=== PATIENT | male | born 1980 | race Caucasian/White ===

== ENCOUNTER 2016-06-15 10:16 | Day surgery (SDC) | payer BC ==
[~2016-06-15 10:16] MED LIST: Buffered Lidocaine 1% SYR 3ML* 3 ML/SYR SYRINGE INTRADERM ONE; Dexamethasone IV* 4 MG/ML 1 ML (4 MG) IV SLOW PU ONE; Famotidine IV* 10 MG/ML 2 ML (20 mg) IV ONE
[2016-06-15] MEDS ORDERED: Buffered Lidocaine 1% SYR 3ML* 3 ML/SYR SYRINGE ONE (10:45)
[2016-06-15] MEDS ORDERED: Famotidine IV* 10 MG/ML 2 ML (20 mg) ONE (10:45)
[2016-06-15] MEDS ORDERED: ceFOXitin 2 GM IVPREMIX* 2 GM/50 ML BAG ONE (10:45)
[2016-06-15] MEDS ORDERED: Dexamethasone IV* 4 MG/ML 1 ML (4 MG) ONE (10:45)
[2016-06-15 13:24] LABS: Hematocrit 31 % (42-52); Hemoglobin 10.1 g/dl (14.0-18.0); Mean Corpuscular HGB Conc 32 g/dl (31-36); Mean Corpuscular Hemoglobin 23 pg (27-31); Mean Corpuscular Volume 72 fL (80-94); Mean Platelet Volume 9 um3 (7.4-10.4); Red Blood Count 4.37 10^6/ul (4.0-5.4); Red Cell Distribution Width 20 % (10.5-15); White Blood Count 5.3 10^3/ul (3.5-10.8)
[2016-06-15 13:25] LABS: Add Diff/Slide Review? Slide Review Added; Comments Flag Yes
[2016-06-15] MEDS ORDERED: Midazolam* 1 MG/ML 5 ML VIAL (5 MG) ONE (14:45)
[2016-06-15] MEDS ORDERED: fentaNYL* 50 MCG/ML 2 ML VIAL (100 MCG VIAL) ONE (14:45)
[2016-06-15] MEDS ORDERED: Chloroprocaine 2%* 20 ML VIAL ONE (14:53)
[2016-06-15] MEDS ORDERED: Bupivacaine 0.5% W/EPI SDV* 30 ML VIAL ONE (15:03)
[2016-06-15] MEDS ORDERED: Lidocaine 1% INJ* 10 MG/ML 30 ML SDV ONE (15:04)
[2016-06-15] MEDS ORDERED: Ondansetron INJ* 2 MG/ML VIAL IV PRN (15:09)
[2016-06-15] MEDS ORDERED: fentaNYL* 50 MCG/ML 2 ML VIAL (100 MCG VIAL) IV PRN (15:09)
[2016-06-15] MEDS ORDERED: oxyCODONE/Acetamin 5/325 MG* TAB PO PRN (15:09)
[2016-06-15] MEDS ORDERED: PROPOFOL ONE (15:13)
[2016-06-15] MEDS ORDERED: Ondansetron INJ* 2 MG/ML VIAL ONE (15:13)
[2016-06-15] MEDS ORDERED: Lidocaine 2% PF * 5 ML VIAL ONE (15:13)
[2016-06-15] MEDS ORDERED: Ketorolac INJ* 30 MG/ML 1 ML VIAL ONE (15:13)
--- NOTE | 2016-06-15 16:00 | SURGPN ---
Brief Operative Note - Surgery Procedures: OPERATIVE REPORT PRE-OP: Rectal bleeding POST-OP:Same, Large internal and external hemorrhoids, no fissure, abscess or fistula. Distal rectal mucosa appears normal. PROCEDURE: Anorectal exam under anesthesia SURGEON: MD Rema ANESTHESIA:Spinal with MAC and local ASST: None IVF:min EBL:none SPECIMEN:none DRAIN: none WOUND CLASS: N/A COMPLICATIONS: none TO PACU
[2016-06-15 19:24] VITALS: BP 118/79
--- NOTE | 2016-06-16 14:50 | OP ---
DATE OF OPERATION: 06/15/16 [facility] DATE OF : 80 SURGEON: Bry Hodgson MD. MIXER OPERATOR RAW SALT: None. ANESTHESIOLOGIST: Dr. Anastacio Manley. ANESTHESIA: Spinal with local. PRE-OP DIAGNOSIS: Anorectal bleeding, with anemia. POST-OP DIAGNOSES: 1. Anorectal bleeding, with anemia. 2. Large internal and external hemorrhoids. OPERATIVE PROCEDURE: Anorectal exam under anesthesia. COMPLICATIONS: None. DRAINS: None. SPECIMENS: None. FINDINGS: The patient had large, complex, both internal and external, hemorrhoids without evidence of ulceration or bleeding. The distal rectal mucosa appeared to be normal. There is no evidence of fissures, fistulas, abscesses, or neoplasia. PLAN AND RECOMMENDATIONS: The findings were discussed with the patient. He will benefit from referral to a colorectal surgeon for consideration of a stapled hemorrhoidectomy, and this was discussed with the patient. BRIEF HISTORY: Mr. Jose D Dela Cruz is a 35-year-old gentleman with a long history of bleeding after bowel movements and has had two colonoscopies in the last 10 years that showed hemorrhoids. He has not sought care for the hemorrhoids. More recently, he was noted to be anemic, requiring blood transfusions and a hospital stay. He seems to be doing better now, with no further bleeding, and responding to iron supplementation, and increase in hemoglobin. An exam in the office was not possible due the patient's discomfort and now is being taken to the operating room for an exam under anesthesia for diagnostic purposes. DESCRIPTION OF PROCEDURE: Written informed consent was obtained. Preoperative antibiotics were administered. He was taken to the operating room. A spinal anesthetic was administered. He was placed in the prone Augusto-knife position. Sequential compression devices and warming blanket were applied. The perineum and the buttocks were prepped and draped in the usual sterile fashion. Time- out verification was completed. Next, 0.25% Marcaine block was then performed in the perianal area. It was obvious that there were some large external hemorrhoids, without evidence of ulceration or bleeding. The digital exam showed slight decreased anal tone to the. However, using anoscopy as well as retractors, it was evident that there were massive internal hemorrhoids along the entire circumference of the anal canal. These were not ulcerated or bleeding, however, but I felt that these were [id number] to consider even banding and it was difficult to determine the demarcation between both the internal and the external hemorrhoid, i.e., identifying the dentate line. There is no evidence of fissures, fistulas, abscesses, mass, and the distal rectal mucosa appeared to be unremarkable. With these findings in mind and the diagnoses made, the procedure was concluded. The patient tolerated the procedure well, was taken to the recovery room in stable condition. CC: Dr. Garret Thornton, [facility] * [id number]/[facility] #: [id number] [facility]
== END 2017-02-10 11:51 | disposition home or self-care (01) ==
LOC: OR 10:16
PROVIDERS: ATTEND Surgery
DX: K64.1 Second degree hemorrhoids (principal); K62.5 Hemorrhage of anus and rectum; F17.210 Nicotine dependence, cigarettes, uncomplicated; D50.0 Iron deficiency anemia secondary to blood loss (chronic)
CPT/HCPCS: 36415; 85025; J0694; J1100; J1885; J2001; J2250; J2400; J2405; J2704; J3010

== ENCOUNTER 2016-07-14 13:29 | Emergency (ER) | payer BC ==
[2016-07-14 13:34] VITALS: BP 141/64
[2016-07-14 14:01] LABS: Comments Flag Yes; Hematocrit 29 % (42-52); Hemoglobin 9.1 g/dl (14.0-18.0); Mean Corpuscular HGB Conc 32 g/dl (31-36); Mean Corpuscular Hemoglobin 23 pg (27-31); Mean Corpuscular Volume 71 fL (80-94); Mean Platelet Volume 9 um3 (7.4-10.4); Red Blood Count 4.03 10^6/ul (4.0-5.4); Red Cell Distribution Width 20 % (10.5-15); White Blood Count 6.1 10^3/ul (3.5-10.8)
[2016-07-14 14:17] LABS: Albumin 3.9 g/dL (3.2-5.2); BUN/Creatinine Ratio 8.1 (8-20); Calcium 8.8 mg/dL (8.6-10.3); EGFR African American 110.6 (>60); Globulin 2.6 g/dL (2-4); Potassium 3.5 mmol/L (3.5-5.0); Total Bilirubin 0.2 mg/dL (0.2-1.0); Total Protein 6.5 g/dL (6.4-8.9)
--- NOTE | 2016-07-14 14:24 | RAD ---
INDICATION: Shortness of breath. COMPARISON: Chest x-ray dated August 28, 2011 TECHNIQUE: Single AP portable view of the chest was obtained. FINDINGS: Image quality is compromised due to the relative inferiority of a portable chest x-ray. The heart and mediastinum exhibit normal size and contour. The lungs are grossly clear. There is no evidence of a large pleural effusion. Visualized bones are normal for the patient's age. IMPRESSION: No radiographic evidence for acute cardiopulmonary abnormality on this portable chest x-ray.
[2016-07-14] MEDS ORDERED: NS 0.9% 1000 ML* 1,000 ML IV ONE (15:10)
[2016-07-14 16:10] LABS: TSH (Thyroid Stimulating Horm) 1.89 mcIU/mL (0.34-5.60)
[2016-07-14 16:17] LABS: Free T4 0.83 ng/dL (0.61-1.12)
[2016-07-14 16:31] LABS: Ferritin 15.2 ng/mL (24-336)
[2016-07-14 18:22] LABS: Hematocrit 29 % (42-52); Hemoglobin 9.1 g/dl (14.0-18.0); Mean Corpuscular HGB Conc 32 g/dl (31-36); Mean Corpuscular Hemoglobin 23 pg (27-31); Mean Corpuscular Volume 72 fL (80-94); Mean Platelet Volume 9 um3 (7.4-10.4); Red Cell Distribution Width 20 % (10.5-15); White Blood Count 6.7 10^3/ul (3.5-10.8)
[2016-07-14 18:25] LABS: Comments Flag Yes
[2016-07-14 18:39] LABS: BUN/Creatinine Ratio 8.7 (8-20); Calcium 9.2 mg/dL (8.6-10.3); EGFR African American 120.4 (>60); EGFR Non-African American 93.6 (>60); Potassium 3.7 mmol/L (3.5-5.0)
[2016-07-14] MEDS ORDERED: Ferrous Sulfate TAB* 325 MG PO ONE (18:45)
[2016-07-14] MEDS ORDERED: Omeprazole CAP* 20 MG PO ONE (18:46)
--- NOTE | 2016-07-15 16:28 | ED ---
Eirk Thomas SooYoung, scribed for Moshe Wing MD on 07/14/16 at 1453 . Shortness of Breath - HPI Summary HPI Summary: A 35 y/o M presents to ED with c/o acute on chronic SOB for past 6-7 months. Associated sx: mild CP, lightheadness, general fatigue, melena, chills, irritability. Denies sx: fever, SI. Pt has a PMHx of GI issues and hemorrhoids for past ten years, but has been gotten much worse within the past 6-7 months. Pt had a recent blood transfusion mid-May at [facility]. He notes feeling better after the transfusion for about 2 weeks. Pt states he's unable to "play with his kids or function at work properly." His PCP is Dr. Denny, his GI is Dr. Hodgson. Pt is a smoker. Non-drinker. No PMHx: HTN, DM, HDL - History of Current Complaint Chief Complaint: EDShortnessOfBreath Hx Obtained From: Patient Onset/Duration: Lasting Weeks - intermittent over 6-7 months, Still Present Associated Signs & Symptoms: Chest Pain Unrelated to Cough, Chills - Allergy/Home Medications Allergies/Adverse Reactions: Allergies Allergy/AdvReac Type Severity Reaction Status Date / Time No Known Allergies Allergy Verified 06/15/16 11:43 PMH/Surg Hx/FS Hx/Imm Hx Previously Healthy: No Endocrine/Hematology History: Reports: Hx Anemia Denies: Hx Diabetes Cardiovascular History: Denies: Hx Congestive Heart Failure Respiratory History: Reports: Hx Sleep Apnea - NOT DIAGNOSED- PT STATES WILL BE TALKING TO DR. DENNY ABOUT GI History: Reports: Other GI Disorders - abdominal pain with blood in stool X 10 YEARS Sensory History: Denies: Hx Contacts or Glasses, Hx Hearing Aid Opthamlomology History: Denies: Hx Contacts or Glasses Psychiatric History: Reports: Hx Anxiety - SLIGHT PER PATIENT - Surgical History Surgery Procedure, Year, and Place: 1994-LEFT KNEE ARTHOSCOPY- [place]. ENDOSCOPY AND 3 COLONOSCOPIES Hx Anesthesia Reactions: No Infectious Disease History: No Infectious Disease History: Denies: Traveled Outside the [place] in Last 30 Days - Family History Known Family History: Positive: Hypertension Negative: Cardiac Disease - Social History Occupation: Employed Full-time Lives: With Family Alcohol Use: None Hx Substance Use: Yes Substance Use Type: Reports: Marijuana Substance Use Comment - Amount & Last Used: STATES USES FOR STOMACH PAIN- USES DAILY Hx Tobacco Use: Yes Smoking Status (MU): Light Every Day Tobacco Smoker Amount Used/How Often: 1/2 PPD X 18 YEARS+ Have You Smoked in the Last Year: Yes Review of Systems Positive: Chills. Negative: Fever Negative: Erythema Negative: Sore Throat Positive: Chest Pain - mild Positive: Shortness Of Breath. Negative: Cough Positive: Other - melena. Negative: Abdominal Pain, Vomiting, Nausea Negative: dysuria, hematuria Positive: Myalgia - general body aches, fatigue. Negative: Edema Negative: Rash Neurological: Other - pos: lightheadedness; neg: dizzyness Positive: Other - irritable All Other Systems Reviewed And Are Negative: Yes Physical Exam - Summary Physical Exam Summary: Constitutional: Well-developed, Well-nourished, Alert. (-) Distressed Skin: Warm, Dry HENT: Normocephalic; Atraumatic Eyes: Conjunctiva normal Neck: Musculoskeletal ROM normal neck. (-) JVD, (-) Stridor, (-) Tracheal deviation Cardio: Rhythm regular, rate normal, Heart sounds normal; Intact distal pulses; The pedal pulses are 2+ and symmetric. Radial pulses are 2+ and symmetric. (-) Murmur Pulmonary/Chest wall: Effort normal. (-) Respiratory distress, (-) Wheezes, (-) Rales Abd: Soft, (-) Tenderness, (-) Distension, (-) Guarding, (-) Rebound Musculoskeletal: (-) Edema Lymph: (-) Cervical adenopathy Neuro: Alert, Oriented x3 Psych: Mood and affect Normal Triage Information Reviewed: Yes Vital Signs On Initial Exam: Initial Vitals Temp Pulse Resp BP Pulse Ox 97.2 F 92 16 141/64 100 07/14/16 13:31 07/14/16 13:31 07/14/16 13:31 07/14/16 13:31 07/14/16 13:31 Vital Signs Reviewed: Yes Diagnostics - Vital Signs Vital Signs Temp Pulse Resp BP Pulse Ox 07/14/16 13:31 97.2 F 92 16 141/64 100 - Laboratory Lab Results: Lab Results 07/14/16 07/14/16 07/14/16 Range/Units 13:45 13:45 13:45 WBC 6.1 (3.5-10.8) 10^3/ul RBC 4.03 (4.0-5.4) 10^6/ul Hgb 9.1 L (14.0-18.0) g/dl Hct 29 L (42-52) % MCV 71 L (80-94) fL MCH 23 L (27-31) pg MCHC 32 (31-36) g/dl RDW 20 H (10.5-15) % Plt Count 223 (150-450) 10^3/ul MPV 9 (7.4-10.4) um3 Neut % (Auto) 52.8 (38-83) % Lymph % (Auto) 36.8 (25-47) % Gillespie % (Auto) 5.6 (1-9) % Eos % (Auto) 3.7 (0-6) % Baso % (Auto) 1.1 (0-2) % Absolute Neuts (auto) 3.2 (1.5-7.7) 10^3/ul Absolute Lymphs (auto) 2.2 (1.0-4.8) 10^3/ul Absolute Monos (auto) 0.3 (0-0.8) 10^3/ul Absolute Eos (auto) 0.2 (0-0.6) 10^3/ul Absolute Basos (auto) 0.1 (0-0.2) 10^3/ul Absolute Nucleated RBC 0.01 10^3/ul Nucleated RBC % 0.1 INR (Anticoag Therapy) 0.90 (0.89-1.11) APTT 30.2 (26.0-36.3) seconds Sodium 139 (133-145) mmol/L Potassium 3.5 (3.5-5.0) mmol/L Chloride 105 (101-111) mmol/L Carbon Dioxide 27 (22-32) mmol/L Anion Gap 7 (2-11) mmol/L BUN 8 (6-24) mg/dL Creatinine 0.99 (0.67-1.17) mg/dL Est GFR ( Amer) 110.6 (>60) Est GFR (Non-Af Amer) 86.0 (>60) BUN/Creatinine Ratio 8.1 (8-20) Glucose 104 H (70-100) mg/dL Lactic Acid (0.5-2.0) mmol/L Calcium 8.8 (8.6-10.3) mg/dL Total Bilirubin 0.20 (0.2-1.0) mg/dL AST 12 L (13-39) U/L ALT 12 (7-52) U/L Alkaline Phosphatase 57 (34-104) U/L Total Creatine Kinase 69 (10-223) U/L CK-MB (CK-2) 1.1 (0.6-6.3) ng/mL Myoglobin 25.1 (17.4-105.7) ng/mL Troponin I 0.00 (<0.04) ng/mL B-Natriuretic Peptide ( - 100) pg/mL Total Protein 6.5 (6.4-8.9) g/dL Albumin 3.9 (3.2-5.2) g/dL Globulin 2.6 (2-4) g/dL Albumin/Globulin Ratio 1.5 (1-3) Blood Type Antibody Screen 07/14/16 07/14/16 07/14/16 Range/Units 13:45 13:45 13:45 WBC (3.5-10.8) 10^3/ul RBC (4.0-5.4) 10^6/ul Hgb (14.0-18.0) g/dl Hct (42-52) % MCV (80-94) fL MCH (27-31) pg MCHC (31-36) g/dl RDW (10.5-15) % Plt Count (150-450) 10^3/ul MPV (7.4-10.4) um3 Neut % (Auto) (38-83) % Lymph % (Auto) (25-47) % Gillespie % (Auto) (1-9) % Eos % (Auto) (0-6) % Baso % (Auto) (0-2) % Absolute Neuts (auto) (1.5-7.7) 10^3/ul Absolute Lymphs (auto) (1.0-4.8) 10^3/ul Absolute Monos (auto) (0-0.8) 10^3/ul Absolute Eos (auto) (0-0.6) 10^3/ul Absolute Basos (auto) (0-0.2) 10^3/ul Absolute Nucleated RBC 10^3/ul Nucleated RBC % INR (Anticoag Therapy) (0.89-1.11) APTT (26.0-36.3) seconds Sodium (133-145) mmol/L Potassium (3.5-5.0) mmol/L Chloride (101-111) mmol/L Carbon Dioxide (22-32) mmol/L Anion Gap (2-11) mmol/L BUN (6-24) mg/dL Creatinine (0.67-1.17) mg/dL Est GFR ( Amer) (>60) Est GFR (Non-Af Amer) (>60) BUN/Creatinine Ratio (8-20) Glucose (70-100) mg/dL Lactic Acid 1.8 (0.5-2.0) mmol/L Calcium (8.6-10.3) mg/dL Total Bilirubin (0.2-1.0) mg/dL AST (13-39) U/L ALT (7-52) U/L Alkaline Phosphatase (34-104) U/L Total Creatine Kinase (10-223) U/L CK-MB (CK-2) (0.6-6.3) ng/mL Myoglobin (17.4-105.7) ng/mL Troponin I (<0.04) ng/mL B-Natriuretic Peptide 7 ( - 100) pg/mL Total Protein (6.4-8.9) g/dL Albumin (3.2-5.2) g/dL Globulin (2-4) g/dL Albumin/Globulin Ratio (1-3) Blood Type O Positive Antibody Screen Negative Result Diagrams: 07/14/16 18:09 07/14/16 18:09 Lab Statement: Any lab studies that have been ordered have been reviewed, and results considered in the medical decision making process. - Radiology CXR Xray Interpretation: No Acute Changes - IMPRESSION: No radiographic evidence for acute active cardopulmonary abnormality Radiology Interpretation Completed By: Radiologist - EKG 1 Cardiac Rate: NL - 74bpm EKG Rhythm: Sinus Rhythm EKG Interpretation: no STEMI Re-Evaluation - Re-Evaluation 1 Re-Evaluation Time: 17:07 Change: Unchanged Comment: Discussing lab results/CXR/[place] charts with pt. Discussed possibility of iron-defeciency anemia, anemia as chronic disease, and anemia due to blood loss. Pt shows signs of symptomatic anemia, mixed with depression. Pt is unsure if he wants a transfusion at this point and will think about it for a short while. 2 Re-Evaluation Time: 18:44 Change: Improved Comment: Declined admittance, transfusion. Pt wants to try tripling up on Iron. Course/Dx - Course Course Of Treatment: MDM: A 35 y/o M with PHx of GI issues and hemorrhoids presents with acute on chronic SOB, fatigue, lightheadedness, mild CP, melena, chills, irritability for past 6-7 months. Pt had a blood transfusion in [facility] in mid-May. Trop is 0.00. CXR is negative. EKG is NSR. Hgb is 9.1. - Diagnoses Provider Diagnoses: chronic rectal bleeding, Iron deficiency anemia Discharge - Discharge Plan Condition: Stable Disposition: HOME Prescriptions: Ferrous Sulfate TAB* 650 mg PO BID #120 tab Omeprazole CAP* [Prilosec CAP* 20 MG] 20 mg PO DAILY #30 cap. Patient Education Materials: Omeprazole (By mouth), Iron Deficiency Anemia (ED) , Rectal Bleeding (ED) Referrals: James Barnes MD [Medical Doctor] - 2 Days [facility] [Outside] - 2 Days Additional Instructions: Follow up with your primary care physician, as well as Dr. Barnes, gastrology, in the next two days. Return to the emergency department for changing or worsening symptoms. The documentation as recorded by the Erik alberts SooYoung accurately reflects the service I personally performed and the decisions made by me, Moshe Wing MD.
== END 2016-07-14 19:25 | disposition home or self-care (01) ==
LOC: ED 13:29
DX: K62.5 Hemorrhage of anus and rectum (principal); D50.9 Iron deficiency anemia, unspecified; R06.02 Shortness of breath; R68.83 Chills (without fever); R07.9 Chest pain, unspecified; M79.1 Myalgia; F17.200 Nicotine dependence, unspecified, uncomplicated
CPT/HCPCS: 36415; 71010; 80048; 80053; 82550; 82553; 82728; 83540; 83550; 83605; 83874; 83880; 84439; 84443; 84484; 85025; 85027; 85610; 85730; 86850; 86900; 86901; 93005; 96360; 99282